=== PATIENT | male | born 1960 | race Two or more races ===

== ENCOUNTER → 2017-07-20 | Outpatient (CLI) | payer OTHER | END | disposition home or self-care (01) | LOC: RAD 501 08:25 | DX: I10 Essential (primary) hypertension (principal); G47.33 Obstructive sleep apnea (adult) (pediatric) ==

== ENCOUNTER 2017-11-17 09:05 | Outpatient (CLI) | payer OTHER | END 2017-11-17 09:07 | disposition home or self-care (01) | LOC: RAD 09:05 | DX: L40.59 Other psoriatic arthropathy (principal) ==

== ENCOUNTER → 2017-11-19 08:23 | Outpatient (CLI) | payer OTHER | END | disposition home or self-care (01) | LOC: RAD 08:23 | DX: J98.11 Atelectasis (principal); J21.8 Acute bronchiolitis due to other specified organisms; J18.9 Pneumonia, unspecified organism; J32.1 Chronic frontal sinusitis ==

== ENCOUNTER 2018-12-25 08:11 | Outpatient (CLI) | payer OTHER | END 2018-12-25 08:13 | disposition home or self-care (01) | LOC: RAD 08:11 | DX: M77.11 Lateral epicondylitis, right elbow (principal); M77.12 Lateral epicondylitis, left elbow ==

== ENCOUNTER 2019-04-03 10:57 | Outpatient (CLI) | payer OTHER | END 2019-04-03 11:02 | disposition home or self-care (01) | LOC: RAD 10:57 | DX: I11.9 Hypertensive heart disease without heart failure (principal) ==

== ENCOUNTER 2019-05-04 07:55 | Outpatient (CLI) | payer OTHER | END 2019-05-04 07:56 | disposition home or self-care (01) | LOC: SONOGRAMA 07:55 | DX: R10.84 Generalized abdominal pain (principal) ==

== ENCOUNTER 2020-07-16 15:04 | Outpatient (CLI) | payer OTHER | END 2020-07-16 15:12 | disposition home or self-care (01) | LOC: RAD 15:04 | PROVIDERS: ATTEND Orthopaedic Surgery Pediatric Orthopaedic Surgery | DX: M16.2 Bilateral osteoarthritis resulting from hip dysplasia (principal) ==

== ENCOUNTER → 2020-11-05 | Outpatient (CLI) | payer OTHER | END | disposition home or self-care (01) | LOC: SONOGRAMA 10:03 → MAMO-SONO 10:15 | PROVIDERS: ATTEND Internal Medicine Rheumatology | DX: L40.59 Other psoriatic arthropathy (principal); M25.432 Effusion, left wrist; M25.431 Effusion, right wrist ==

== ENCOUNTER → 2021-04-15 | Outpatient (CLI) | payer OTHER | END | disposition home or self-care (01) | LOC: RAD 11:48 | PROVIDERS: ATTEND Orthopaedic Surgery Adult Reconstructive Orthopaedic Surgery | DX: M25.552 Pain in left hip (principal) ==

== ENCOUNTER 2021-09-09 16:49 | Emergency (ER) | payer OTHER ==
[~2021-09-09] VITALS: Ht 172.7 cm; Wt 90.7 kg
[2021-09-09] MEDS ORDERED: SYNTHROID75 MCG (17:09)
[2021-09-09] MEDS ORDERED: LIPITOR20 MG (17:09)
[2021-09-09] MEDS ORDERED: PLAVIX75 MG (17:09)
[2021-09-09] MEDS ORDERED: AMLODIPINE-OLM1 EAC2 (17:09)
[2021-09-09] MEDS ORDERED: NEURONTIN600 M1 (17:10)
[2021-09-09] MEDS ORDERED: COSENTYX P150 MG/11 (17:10)
== END 2021-09-09 18:08 | disposition home or self-care (01) ==
LOC: ER 16:49
DX: S61.011A Laceration without foreign body of right thumb without damage to nail, initial encounter (principal); W26.0XXA Contact with knife, initial encounter; Y93.89 Activity, other specified; Y92.9 Unspecified place or not applicable; Y99.9 Unspecified external cause status; Z88.8 Allergy status to other drugs, medicaments and biological substances; I10 Essential (primary) hypertension

== ENCOUNTER 2022-06-29 09:45 | Outpatient (CLI) | payer OTHER ==
[~2022-06-29 09:45] MED LIST: AMLODIPINE-OLM1 EAC2; COSENTYX P150 MG/11; LIPITOR20 MG; NEURONTIN600 M1; PLAVIX75 MG; SYNTHROID75 MCG
== END 2022-06-29 09:50 | disposition home or self-care (01) ==
LOC: RAD 09:45
PROVIDERS: ATTEND Internal Medicine Rheumatology
DX: L40.59 Other psoriatic arthropathy (principal)

== ENCOUNTER 2023-06-14 10:12 | Outpatient (CLI) | payer OTHER | END 2023-06-14 10:19 | disposition home or self-care (01) | LOC: RAD 10:12 | DX: G54.4 Lumbosacral root disorders, not elsewhere classified (principal) ==

== ENCOUNTER 2023-11-14 11:41 | Outpatient (CLI) | payer OTHER | END 2023-11-14 11:46 | disposition home or self-care (01) | LOC: SONOGRAMA 11:41 | DX: L40.59 Other psoriatic arthropathy (principal); M17.0 Bilateral primary osteoarthritis of knee; M71.21 Synovial cyst of popliteal space [Baker], right knee ==

== ENCOUNTER 2023-12-07 12:09 | Outpatient (CLI) | payer OTHER | END 2023-12-07 12:17 | disposition home or self-care (01) | LOC: TOM 12:09 | PROVIDERS: ATTEND Surgery | DX: K42.0 Umbilical hernia with obstruction, without gangrene (principal) ==

== ENCOUNTER 2023-12-29 11:50 | Day surgery (SDC) | payer OTHER ==
[2023-12-22 09:09] LABS: PH,URINE 5.5 (5.0-8.0); URINE APPEARANCE Clear; URINE BACTERIA 7.5 uL (0.0-1933); URINE BILIRRUBIN Negative (NEGATIVE); URINE BLOOD Small; URINE COLOR Yellow; URINE EPITHELIAL CELLS 2.4 uL (0.0-38.8); URINE GLUCOSE Negative (NEGATIVE); URINE KETONE Trace (NEGATIVE); URINE LEUKOCYTE Negative; URINE NITRATE Negative; URINE PROTEIN Trace (NEGATIVE); URINE RBC 35.5 uL (0.0-20.8); URINE WBC 2.9 uL (0.0-23.2)
[2023-12-22 09:21] LABS: URINE CAST 0.61 uL (0.0-1.40)
[2023-12-22 09:26] LABS: HEMOGLOBIN 14.1 g/dL (13-16.00); MEAN CELL VOLUME 90.2 fL (80.0-100.00); MEAN CORPUSCULAR HEMOGLOBIN 30.9 pg (27.00-32.0); MEAN CORPUSCULAR HGB CONC 34.3 g/dl (32.0-36.0); PLATELET COUNT 201 K/uL (150-450); RED BLOOD COUNT 4.54 M/uL (4.00-6.00)
[2023-12-22 09:43] LABS: INR 0.98
[2023-12-22 09:50] LABS: CALCIUM 8.9 mg/dL (8.5-10.1); CREATININE SERUM 0.91 mg/dL (0.70-1.30); GFR 84.15; POTASSIUM 4.06 mEq/L (3.5-5.1)
[2023-12-22 10:09] LABS: PROTHROMBIN TIME 10.3 SECONDS (9.0-11.5)
[~2023-12-29] VITALS: Ht 170.2 cm; Wt 88.9 kg
[~2023-12-29 11:50] MED LIST changes: -SYNTHROID75 MCG; +SYNTHROID75 MCG PO
[2023-12-29] MEDS ORDERED: CEFAZOLIN SODIUM 1,000 MG VIAL ONE (12:20)
[2023-12-29] MEDS ORDERED: BUPIVACAINE HCL/MPF 0.5% 30ML VIAL ONE (14:18)
[2023-12-29] MEDS ORDERED: CHLORHEXIDINE GLUCONATE 120 ML BOTTLE TOP ONE (14:39)
[2023-12-29] MEDS ORDERED: TRAMADOL HCL50 MG PO (15:07)
[2023-12-29] MEDS ORDERED: KETO10TA2 PO (15:07)
[2023-12-29] MEDS ORDERED: MIRALAX17 GM PO (15:07)
[2023-12-29] MEDS ORDERED: TYLENOL ARTHRI650 MG PO (15:07)
[2023-12-29] MEDS ORDERED: SUGAMMADEX SODIUM 200 MG/2 ML VIAL IV ONE (15:42)
[2023-12-29] MEDS ORDERED: KETOROLAC TROMETHAMINE 30 MG VIAL ONE (15:43)
== END 2023-12-29 18:00 | disposition home or self-care (01) ==
LOC: O/R 11:50 → SURH 11:50 → CIR.AMB 11:50 → SURH 17:15 → CIR.AMB 18:00 → O/R 18:00
PROVIDERS: ATTEND Surgery
DX: K42.0 Umbilical hernia with obstruction, without gangrene (principal)

== ENCOUNTER 2024-01-17 09:09 | Outpatient (CLI) | payer OTHER ==
[~2024-01-17 09:09] MED LIST changes: +KETO10TA2 PO; +MIRALAX17 GM PO; +TRAMADOL HCL50 MG PO; +TYLENOL ARTHRI650 MG PO
== END 2024-01-17 09:20 | disposition home or self-care (01) ==
LOC: MRI 09:09
PROVIDERS: ATTEND Neuromusculoskeletal Medicine & OMM
DX: H34.231 Retinal artery branch occlusion, right eye (principal); I10 Essential (primary) hypertension
CPT/HCPCS: 70551

== ENCOUNTER 2024-05-22 10:03 | Outpatient (CLI) | payer OTHER | END 2024-05-22 10:09 | disposition home or self-care (01) | LOC: RAD 10:03 | DX: L40.59 Other psoriatic arthropathy (principal); M15.0 Primary generalized (osteo)arthritis; M51.86 Other intervertebral disc disorders, lumbar region ==

== ENCOUNTER 2024-08-10 07:14 | Outpatient (CLI) | payer OTHER | END 2024-08-10 07:18 | disposition home or self-care (01) | LOC: RAD 07:14 | PROVIDERS: ATTEND Internal Medicine Rheumatology | DX: R31.29 Other microscopic hematuria (principal); L40.59 Other psoriatic arthropathy ==

== ENCOUNTER → 2024-09-04 07:05 | Outpatient (CLI) | payer OTHER | END | disposition home or self-care (01) | LOC: TOM 07:05 | PROVIDERS: ATTEND Internal Medicine Rheumatology | DX: R31.21 Asymptomatic microscopic hematuria (principal); R31.0 Gross hematuria; M16.0 Bilateral primary osteoarthritis of hip; M70.61 Trochanteric bursitis, right hip; L40.59 Other psoriatic arthropathy; Z96.641 Presence of right artificial hip joint | CPT/HCPCS: 73700; 74178; Q9965 ==

== ENCOUNTER 2024-12-03 10:36 | Outpatient (CLI) | payer OTHER | END 2024-12-03 10:38 | disposition home or self-care (01) | LOC: SONOGRAMA 10:36 | PROVIDERS: ATTEND Internal Medicine Endocrinology, Diabetes & Metabolism | DX: E04.8 Other specified nontoxic goiter (principal) ==

== ENCOUNTER 2025-03-19 11:11 | Outpatient (CLI) | payer OTHER | END 2025-03-19 11:19 | disposition home or self-care (01) | LOC: MRI 11:11 | PROVIDERS: ATTEND Internal Medicine Rheumatology | DX: M54.16 Radiculopathy, lumbar region (principal) | CPT/HCPCS: 72148 ==